=== PATIENT | male | born 1950 | race Caucasian/White ===

== ENCOUNTER 2017-12-27 11:19 | Outpatient (CLI) | payer MEDICARE, BC ==
[2017-12-16 05:20] VITALS: O2SAT 93
[2017-12-31 07:16] LABS: *HLA-B27 Negative
== END 2017-12-27 11:20 | disposition home or self-care (01) | DRG 552 ==
LOC: CONVCARE 11:19
PROVIDERS: ATTEND Orthopaedic Surgery
DX: M54.9 Dorsalgia, unspecified (principal); M45.7 Ankylosing spondylitis of lumbosacral region
CPT/HCPCS: 36415; 85651